=== PATIENT | female | born 1945 | race Native Hawaiian/Other Pacific Islander ===

== ENCOUNTER 2017-02-06 07:11 | Outpatient (CLI) | payer OTHER ==
[~2017-02-06 07:11] MED LIST: AMLO2.5T PO; ASA LOW STR81 MG PO; COMBIGAN0.2 MG/0.5 OP; LEVAQUIN500 MG OR; LEVO0.0529 PO; XALATAN0.005 % OP
[2017-02-06 07:47] LABS: PLATELET COUNT 244 K/uL (152-353)
[2017-02-06 08:11] LABS: SODIUM 141 mmol/L (136-145)
== END 2017-02-06 08:40 | disposition home or self-care (01) ==
LOC: LABW 07:11
PROVIDERS: Internal Medicine
DX: R06.02 Shortness of breath (principal); I10 Essential (primary) hypertension; E11.9 Type 2 diabetes mellitus without complications; E03.8 Other specified hypothyroidism
CPT/HCPCS: 36415; 80053; 80061; 82043; 82570; 83036; 83880; 84439; 84443; 85027; 85379

== ENCOUNTER 2017-05-22 11:17 | Outpatient (CLI) | payer OTHER | END 2017-05-22 19:31 | disposition home or self-care (01) | LOC: RESP 11:17 | DX: R06.09 Other forms of dyspnea (principal) ==

== ENCOUNTER 2017-09-25 07:39 | Outpatient (CLI) | payer OTHER ==
[2017-09-25 08:08] LABS: PLATELET COUNT 268 K/uL (152-353)
[2017-09-25 08:52] LABS: POTASSIUM 3.8 mmol/L (3.6-5.2)
== END 2017-09-25 20:03 | disposition home or self-care (01) ==
LOC: LABW 07:39 → MAMMO 11:00 → LABW 20:03
PROVIDERS: Internal Medicine
DX: Z12.31 Encounter for screening mammogram for malignant neoplasm of breast (principal); I10 Essential (primary) hypertension; R73.02 Impaired glucose tolerance (oral); E03.8 Other specified hypothyroidism
CPT/HCPCS: 36415; 80053; 80061; 81000; 83036; 84439; 84443; 85027

== ENCOUNTER 2018-02-21 07:46 | Outpatient (CLI) | payer OTHER ==
[2018-02-21 08:23] LABS: PLATELET COUNT 257 K/uL (152-353)
[2018-02-21 08:26] LABS: POTASSIUM 3.7 mmol/L (3.6-5.2)
== END 2018-02-21 22:13 | disposition home or self-care (01) ==
LOC: LABW 07:46
PROVIDERS: Internal Medicine
DX: R73.02 Impaired glucose tolerance (oral) (principal); E03.8 Other specified hypothyroidism; I10 Essential (primary) hypertension
CPT/HCPCS: 36415; 80053; 80061; 81000; 83036; 84439; 84443; 85027

== ENCOUNTER 2018-10-19 07:47 | Outpatient (CLI) | payer OTHER ==
[2018-10-19 08:19] LABS: PLATELET COUNT 261 K/uL (152-353)
== END 2018-10-19 19:23 | disposition home or self-care (01) ==
LOC: LABW 07:47
PROVIDERS: Internal Medicine
DX: Z00.00 Encounter for general adult medical examination without abnormal findings (principal); E55.9 Vitamin D deficiency, unspecified; I10 Essential (primary) hypertension; E03.8 Other specified hypothyroidism
CPT/HCPCS: 36415; 80053; 80061; 81000; 82306; 84439; 84443; 85027

== ENCOUNTER 2018-10-25 12:33 | Outpatient (CLI) | payer OTHER | END 2018-10-25 20:37 | disposition home or self-care (01) | LOC: MAMMO 12:33 | DX: Z12.31 Encounter for screening mammogram for malignant neoplasm of breast (principal); Z13.820 Encounter for screening for osteoporosis; N95.9 Unspecified menopausal and perimenopausal disorder ==

== ENCOUNTER 2018-12-04 15:05 | Outpatient (CLI) | payer OTHER | END 2018-12-04 19:40 | disposition home or self-care (01) | LOC: RAD 15:05 | DX: J40 Bronchitis, not specified as acute or chronic (principal) ==

== ENCOUNTER 2019-01-24 07:34 | Outpatient (CLI) | payer OTHER | END 2019-01-24 19:49 | disposition home or self-care (01) | LOC: RESP 07:34 | DX: J43.9 Emphysema, unspecified (principal) | CPT/HCPCS: 36415; 36600; 82565; 82805; 84520; 94664; Q9963 ==

== ENCOUNTER 2021-04-28 09:17 | Outpatient (CLI) | payer OTHER | END 2021-04-28 19:01 | disposition home or self-care (01) | LOC: US 09:17 | PROVIDERS: ATTEND Physician Assistant | DX: M25.561 Pain in right knee (principal) ==

== ENCOUNTER 2021-06-22 12:05 | Outpatient (CLI) | payer OTHER ==
[2021-06-22 12:21] LABS: PLATELET COUNT 272 K/uL (152-353)
[2021-06-22 12:40] LABS: POTASSIUM 4.6 mmol/L (3.6-5.2)
== END 2021-06-22 18:59 | disposition home or self-care (01) ==
LOC: LAB 12:05
PROVIDERS: ATTEND Internal Medicine
DX: I10 Essential (primary) hypertension (principal); E03.8 Other specified hypothyroidism; E55.9 Vitamin D deficiency, unspecified
CPT/HCPCS: 80053; 80061; 82306; 84439; 84443; 85027

== ENCOUNTER 2021-06-28 10:51 | Outpatient (CLI) | payer OTHER | END 2021-06-28 21:01 | disposition home or self-care (01) | LOC: MAMMO 10:51 | PROVIDERS: ATTEND Internal Medicine | DX: Z13.820 Encounter for screening for osteoporosis (principal); Z12.31 Encounter for screening mammogram for malignant neoplasm of breast; N95.8 Other specified menopausal and perimenopausal disorders ==

== ENCOUNTER 2021-12-17 09:53 | Outpatient (CLI) | payer OTHER | END 2021-12-17 18:55 | disposition home or self-care (01) | LOC: RAD 09:53 | PROVIDERS: ATTEND Internal Medicine | DX: R09.1 Pleurisy (principal) ==

== ENCOUNTER 2023-01-26 08:50 | Outpatient (CLI) | payer OTHER | END 2023-01-26 19:17 | disposition home or self-care (01) | LOC: MAMMO 08:50 | PROVIDERS: ATTEND Internal Medicine | DX: Z12.31 Encounter for screening mammogram for malignant neoplasm of breast (principal) ==